=== PATIENT | male | born 1930 | race Caucasian/White ===

== ENCOUNTER 2017-10-15 08:46 | Outpatient (CLI) | payer MEDICARE ==
[~2017-10-15] VITALS: Ht 177.8 cm; Wt 72.6 kg
[~2017-10-15 08:46] MED LIST: ASPI81TA52 PO; ATOR10TA PO; BETA1TAB19 PO; CHOL400T32 PO; CLOP75TA15 PO; GINK120C PO; MAGN400C PO; MULT-1085 PO; OMEP20CA10 PO; VITA-67 PO; XAL0.005OS OP; ZINC30TA2 PO
[2017-10-15 09:16] LABS: TOTAL HEMOGLOBIN 15.8 G/dl (14.0-18.0)
[2017-10-15] MEDS ORDERED: albuterol 2.5 MG/3 ML nebule NEB PRN (09:45)
== END 2017-10-15 23:59 | disposition home or self-care (01) ==
LOC: RT 08:46
PROVIDERS: ATTEND Internal Medicine Pulmonary Disease
DX: J84.112 Idiopathic pulmonary fibrosis (principal); J98.4 Other disorders of lung
CPT/HCPCS: 85018; 94060; 94640; 94727; 94729; 94760

== ENCOUNTER 2018-09-23 15:12 | Inpatient (IN) | payer MEDICARE, OTHER ==
[~2018-09-23] VITALS: Ht 177.8 cm; Wt 68.9 kg
[~2018-09-23 15:12] MED LIST changes: +ALBU8.5H8 INH; +ASCO500C15 PO; -BETA1TAB19 PO; +BUDE10.22 INH; +CINN500C15; +COL100C PO; +LACT1CAP26 PO; +LEVO750T46 PO; -OMEP20CA10 PO; +VITA-332; -XAL0.005OS OP; -ZINC30TA2 PO
[2018-09-23] MEDS ORDERED: methylPREDNISolone sod succ 125mg/2ml vial IV ONE (15:25)
[2018-09-23] MEDS ORDERED: albuterol 2.5 MG/3 ML nebule CONTNEB PRN (15:25)
[2018-09-23] MEDS ORDERED: furosemide 10 MG/1 ML 10ml inj IV ONE (15:55)
[2018-09-23 16:00] LABS: ABG BASE EXCESS -0.8 mmol/L (-2.0-3.0); ABG HCO3 22.6 mmol/L (22.0-26.0); ABG OXYGEN SATURATION 88.5 % (95-98); ABG PCO2 (T) 33.7 mmHg (35.0-48.0); ABG PH (T) 7.444 (7.350-7.450); ABG PO2 (T) 56.5 mmHg (83-108); FLOW 3 L/min; FMetHb 0.2 % (0.3-1.12); FO2Hb 87.4 % (94-100); TOTAL HEMOGLOBIN 13.5 G/dl (14.0-18.0)
--- NOTE | 2018-09-23 16:01 | NUR ---
pt is receiving breathing treatment
--- NOTE | 2018-09-23 16:11 | NUR ---
PT IS RESTING QUIETLY ON GURNEY, NO RESP DISTRESS, SPEAKING 5-6 WORD SENTENCES, FAMILY AT BEDSIDE, SKIN P/W/D
[2018-09-23 16:17] LABS: BASOPHILS # (AUTO) 0.1 X10'3 (0-0.2); BASOPHILS % (AUTO) 1.2 % (0-1); EOSINOPHILS # (AUTO) 0.2 X10'3 (0-0.9); EOSINOPHILS % (AUTO) 2.7 % (0-6); HEMATOCRIT 38.3 % (42.0-52.0); HEMOGLOBIN 12.7 g/dl (14.0-17.9); LYMPHOCYTES # (AUTO) 1.5 X10'3 (1.1-4.8); LYMPHOCYTES % (AUTO) 20.1 % (21-51); MEAN CORPUSCULAR HEMOGLOBIN 29.2 PG (27.0-31.0); MEAN CORPUSCULAR HGB CONC 33.1 g/dL (33.0-36.5); MEAN CORPUSCULAR VOLUME 88.2 FL (78-98); MEAN PLATELET VOLUME 7.5 FL (7.4-10.4); MONOCYTES # (AUTO) 0.9 X10'3 (0-0.9); MONOCYTES % (AUTO) 12.1 % (2-12); NEUTROPHILS # (AUTO) 4.8 X10'3 (1.8-7.7); NEUTROPHILS % (AUTO) 63.9 % (42-75); PLATELET COUNT 296 X10'3 (140-440); RED BLOOD COUNT 4.34 X10'6 (4.70-6.10); RED CELL DISTRIBUTION WIDTH 15.8 % (11.5-14.5); WHITE BLOOD COUNT 7.5 X10'3 (4.5-11.0)
--- NOTE | 2018-09-23 16:25 | NUR ---
PT UP TO AT BEDSIDE WITHOUT ASSIST TO USE URINAL, SOB INCREASED WITH ACTIVITY, SPEAKING 3-4 WORD SENTENCES, PULSE OX 85% WHILE ON BREATHING TREATMENT BUT INCREASED TO 96% AFTER 5 MINUTES AND SOB IS RESOLVING
[2018-09-23 16:45] LABS: INR 1.1 INR
[2018-09-23 16:55] LABS: ALANINE AMINOTRANSFERASE 19 U/L (12-78); ALBUMIN 3.2 G/DL (3.4-5.0); ALBUMIN/GLOBULIN RATIO 1.1 (1.1-1.5); ALKALINE PHOSPHATASE 79 IU/L (46-116); ANION GAP 16 (8-16); ASPARTATE AMINO TRANSFERASE 25 U/L (10-37); BILIRUBIN,TOTAL 0.4 MG/DL (0.1-1.0); BLOOD UREA NITROGEN 25 MG/DL (7-18); BUN/CREATININE RATIO 24.8 (5.4-32.0); CALCIUM 8.8 MG/DL (8.5-10.1); CHLORIDE 107 MMOL/L (99-107); CREATININE 1.01 MG/DL (0.60-1.10); GLUCOSE 89 MG/DL (70-104); POTASSIUM 4.3 MMOL/L (3.5-5.1); SODIUM 143 MMOL/L (135-145); TOTAL CARBON DIOXIDE 20.1 MMOL/L (24-32); TOTAL PROTEIN 6.2 G/DL (6.4-8.2); eGFR 70 ML/MIN
[2018-09-23] MEDS ORDERED: PRED10TA23 PO (16:59)
--- NOTE | 2018-09-23 17:16 | NUR ---
PT AMB WITH STEADY GAIT ON 3LITERS NASAL CANNULA, PULSE OX 80%WITH AMBULATION, Geneva PAGAN AWARE
--- NOTE | 2018-09-23 17:32 | NUR ---
Geneva PAGAN at bedside to evaluate pt, pt continues to rest quietly sitting on edge of bed, 94% on 3liters nasal cannula
--- NOTE | 2018-09-23 18:10 | NUR ---
PT IS WAITING TO BE EVALUATED BY HOSPITALIST
--- NOTE | 2018-09-23 18:17 | NUR ---
Dr Yang at bedside
--- NOTE | 2018-09-23 18:22 | NUR ---
dr. mendenhall at bedside for admission now.
[2018-09-23] MEDS ORDERED: magnesium 2GM in 50ml NS 50 ML IV PRN (18:25)
[2018-09-23] MEDS ORDERED: potassium Cl 40MEQ/NS 500ml 500 ML IV PRN ×2 (18:25)
[2018-09-23] MEDS ORDERED: magnesium hydroxide 30ml (MOM) UD suspension PO PRN (18:25)
[2018-09-23] MEDS ORDERED: potassium Cl 20 mEq SR tablet PO PRN ×2 (18:25)
[2018-09-23] MEDS ORDERED: magnesium Cl slow-release 64mg tablet PO PRN (18:25)
[2018-09-23] MEDS ORDERED: magnesium 4gm in 100ml NS 100 ML IV PRN (18:25)
[2018-09-23] MEDS ORDERED: mag hydrox/Alum hydrox/simeth 30ml oral suspension PO PRN (18:25)
[2018-09-23] MEDS ORDERED: ondansetron/PF 4mg/2ml inj IV PRN (18:25)
[2018-09-23] MEDS ORDERED: acetaminophen 325mg tablet PO PRN ×2 (18:25)
[2018-09-23] MEDS ORDERED: CLOP75TA15 PO (18:31)
[2018-09-23] MEDS ORDERED: clopidogrel 75mg tablet PO SCH (18:35)
[2018-09-23] MEDS ORDERED: ipratropium/albuterol 3ml nebule NEB PRN (18:35)
--- NOTE | 2018-09-23 19:00 | NUR ---
PHARMACIST ASKING PT WHY HE TAKES PLAVIX ONLY EVERY OTHER DAY AND PT REPORTS THAT DR. PHILIP HAS TOLD HIM TO CHANGE IT TO EVERY OTHER DAY ABOUT 2 WEEKS AGO. PT REPORTS THAT THE DOCTOR TOLD HIM HE DOES NOT "REALLY NEED IT ANY MORE"
[2018-09-23] MEDS: furosemide 20 MG/2 ML vial IV SCH (19:58)
[2018-09-23] MEDS: methylPREDNISolone sod succ 125mg/2ml vial IV SCH (20:21)
--- NOTE | 2018-09-23 20:21 | NUR ---
pt given sandwich and milk. awaiting ipa. vss. awaiting svn treatment from RT. (ordered q4hr scheduled)
[2018-09-23] MEDS: ipratropium/albuterol 3ml nebule NEB SCH (20:50)
[2018-09-23] MEDS ORDERED: temazepam 15mg capsule PO PRN (21:00)
--- NOTE | 2018-09-23 21:50 | NUR ---
, Neeraj, calling for update. contact [phone].
--- NOTE | 2018-09-23 22:20 | NUR ---
relieving RN for lunch, pt is now on hospital bed, no beds available upstairs
[2018-09-24] MEDS: ipratropium/albuterol 3ml nebule NEB SCH ×6 (00:35→19:49)
[2018-09-24] MEDS: methylPREDNISolone sod succ 125mg/2ml vial IV SCH ×4 (02:14→20:09)
[2018-09-24 04:15] LABS: HEMATOCRIT 39.3 % (42.0-52.0); HEMOGLOBIN 12.8 g/dl (14.0-17.9); MEAN CORPUSCULAR HEMOGLOBIN 28.5 PG (27.0-31.0); MEAN CORPUSCULAR HGB CONC 32.6 g/dL (33.0-36.5); MEAN CORPUSCULAR VOLUME 87.4 FL (78-98); MEAN PLATELET VOLUME 7.4 FL (7.4-10.4); PLATELET COUNT 343 X10'3 (140-440); RED CELL DISTRIBUTION WIDTH 16.1 % (11.5-14.5); WHITE BLOOD COUNT 4.8 X10'3 (4.5-11.0)
[2018-09-24 04:32] LABS: ALBUMIN 3.2 G/DL (3.4-5.0); ANION GAP 8 (8-16); BLOOD UREA NITROGEN 28 MG/DL (7-18); BUN/CREATININE RATIO 26.4 (5.4-32.0); CALCIUM 8.9 MG/DL (8.5-10.1); CHLORIDE 106 MMOL/L (99-107); CREATININE 1.06 MG/DL (0.60-1.10); GLUCOSE 141 MG/DL (70-104); POTASSIUM 4.1 MMOL/L (3.5-5.1); SODIUM 143 MMOL/L (135-145); TOTAL CARBON DIOXIDE 28.9 MMOL/L (24-32); eGFR 66 ML/MIN
[2018-09-24 04:37] LABS: MAGNESIUM 1.9 MG/DL (1.5-2.4)
--- NOTE | 2018-09-24 07:29 | NUR ---
Patient in room ED 9. I have received report from Deb MARTIN and had the opportunity to ask questions and assume patient care.
[2018-09-24] MEDS: pantoprazole 40mg Tablet.DR PO SCH (07:41)
[2018-09-24] MEDS: furosemide 20 MG/2 ML vial IV SCH ×2 (07:41→20:09)
[2018-09-24] MEDS: aspirin 81mg tablet.DR PO SCH (07:41)
[2018-09-24] MEDS: atorvastatin 10mg tablet PO SCH (07:41)
[2018-09-24] MEDS: enoxaparin 40mg/0.4ml syringe SQ SCH (07:42)
[2018-09-24] MEDS: K and/or MAG REPLACEMENT MC SCH (09:45)
[2018-09-24 11:00] VITALS: BP 110/51
[2018-09-24 15:00] VITALS: BP 137/76
--- NOTE | 2018-09-24 18:15 | NUR ---
Patient in room PCU 3025. I have received report from Byron MARTIN and had the opportunity to ask questions and assume patient care. Pt laying in bed. Skin check performed at this time. Pleasant demeanor. Compliant with fluid restriction. On supplemental O2. 20G in R. FA SL
[2018-09-24 19:00] VITALS: BP 109/69
[2018-09-24 23:00] VITALS: BP 98/58
[2018-09-25] MEDS: ipratropium/albuterol 3ml nebule NEB SCH ×4 (00:04→11:00)
[2018-09-25 03:00] VITALS: BP 92/52
[2018-09-25] MEDS: methylPREDNISolone sod succ 125mg/2ml vial IV SCH ×2 (03:02→08:24)
[2018-09-25 05:42] LABS: HEMOGLOBIN 12.4 g/dl (14.0-17.9); MEAN CORPUSCULAR HEMOGLOBIN 28.9 PG (27.0-31.0); MEAN CORPUSCULAR HGB CONC 32.7 g/dL (33.0-36.5); MEAN CORPUSCULAR VOLUME 88.4 FL (78-98); MEAN PLATELET VOLUME 7.9 FL (7.4-10.4); PLATELET COUNT 340 X10'3 (140-440); RED CELL DISTRIBUTION WIDTH 15.5 % (11.5-14.5)
[2018-09-25 06:00] VITALS: BP 103/49
[2018-09-25 06:07] LABS: ALBUMIN 3.2 G/DL (3.4-5.0); ANION GAP 10 (8-16); BLOOD UREA NITROGEN 37 MG/DL (7-18); BUN/CREATININE RATIO 34.6 (5.4-32.0); CALCIUM 8.9 MG/DL (8.5-10.1); CHLORIDE 102 MMOL/L (99-107); CREATININE 1.07 MG/DL (0.60-1.10); GLUCOSE 130 MG/DL (70-104); POTASSIUM 4.2 MMOL/L (3.5-5.1); SODIUM 142 MMOL/L (135-145); TOTAL CARBON DIOXIDE 30.2 MMOL/L (24-32); eGFR 65 ML/MIN
--- NOTE | 2018-09-25 06:44 | NUR ---
Problems reprioritized. Patient report given, questions answered & plan of care reviewed with Jory MARTIN.
[2018-09-25] MEDS: K and/or MAG REPLACEMENT MC SCH (08:00)
[2018-09-25] MEDS: aspirin 81mg tablet.DR PO SCH (08:22)
[2018-09-25] MEDS: pantoprazole 40mg Tablet.DR PO SCH (08:22)
[2018-09-25] MEDS: atorvastatin 10mg tablet PO SCH (08:22)
[2018-09-25] MEDS: furosemide 20 MG/2 ML vial IV SCH (08:25)
[2018-09-25] MEDS: enoxaparin 40mg/0.4ml syringe SQ SCH (08:27)
[2018-09-25 11:00] VITALS: BP 136/57
[2018-09-25] MEDS ORDERED: PRED10TA23 PO (11:24)
[2018-09-25] MEDS ORDERED: FURO-150 PO (11:24)
--- NOTE | 2018-09-25 12:06 | NUR ---
PAGER ID: [phone] MESSAGE: Jory MARTIN [phone] Pt. walked 150ft on 3L and O2 sats stayed in the low 80s. Pt. was also SOB throughout the walk. O2 sats at rest were mid 90s. Thank you
--- NOTE | 2018-09-25 12:35 | NUR ---
PAGER ID: [phone] MESSAGE: Jory MARTIN [phone] Jareth. Took pt. between 4 and 4.5L to stay in the 90s. Pt. walked 300ft.
--- NOTE | 2018-09-25 15:20 | NUR ---
Removed pt.s monitor and IV, IV tip intact. Pt. accompanied by and wheeled down to private vehicle in stable condition. Pt. given discharge packet and new medication list [facility], who confirmed she received the fax. Pt took with him 2 bags of belongings which included cell phone. Pt no longer on the floor.
== END 2018-09-25 15:10 | disposition home or self-care (01) | DRG 280 ==
LOC: ER 15:13 → ED HOLD 18:24 → PCU 3S 09-24 08:22
PROVIDERS: ADMIT Family Medicine; ATTEND Internal Medicine
DX: I11.0 Hypertensive heart disease with heart failure (principal); I21.A1 Myocardial infarction type 2; J96.21 Acute and chronic respiratory failure with hypoxia; J44.1 Chronic obstructive pulmonary disease with (acute) exacerbation; E78.5 Hyperlipidemia, unspecified; I50.9 Heart failure, unspecified; J84.10 Pulmonary fibrosis, unspecified; I25.10 Atherosclerotic heart disease of native coronary artery without angina pectoris; N40.0 Benign prostatic hyperplasia without lower urinary tract symptoms; I25.2 Old myocardial infarction; Z95.5 Presence of coronary angioplasty implant and graft; Z79.899 Other long term (current) drug therapy; Z79.82 Long term (current) use of aspirin
CPT/HCPCS: 36415; 36600; 71045; 80048; 80053; 82803; 83735; 83880; 84484; 85018; 85025; 85027; 85610; 87070; 93005; 94640; 94644; 94760; 96374; 96375; 99285; G0378; J1650; J1940; J2930

== ENCOUNTER 2018-12-30 12:14 | Emergency (ER) | payer MEDICARE, OTHER ==
[~2018-12-30] VITALS: Ht 177.8 cm; Wt 63.5 kg
[~2018-12-30 12:14] MED LIST changes: -CHOL400T32 PO; -CINN500C15; -COL100C PO; +FURO-150 PO; -GINK120C PO; -LACT1CAP26 PO; -LEVO750T46 PO; -MAGN400C PO; -VITA-332; -VITA-67 PO
[2018-12-30] MEDS ORDERED: ipratropium 0.5 MG/2.5ML nebule IH ONE (12:40)
[2018-12-30] MEDS ORDERED: magnesium 2GM in 50ml NS 50 ML IV ONE (12:40)
[2018-12-30] MEDS ORDERED: albuterol 2.5 MG/3 ML nebule CONTNEB PRN (12:40)
[2018-12-30] MEDS ORDERED: methylPREDNISolone sod succ 125mg/2ml vial IV ONE (12:40)
[2018-12-30] MEDS ORDERED: ipratropium 0.5 MG/2.5ML nebule ONE (13:18)
[2018-12-30 13:23] LABS: BASOPHILS # (AUTO) 0.1 X10'3 (0-0.2); BASOPHILS % (AUTO) 0.9 % (0-1); EOSINOPHILS # (AUTO) 0.4 X10'3 (0-0.9); EOSINOPHILS % (AUTO) 5.5 % (0-6); HEMATOCRIT 43.1 % (42.0-52.0); LYMPHOCYTES # (AUTO) 1.7 X10'3 (1.1-4.8); LYMPHOCYTES % (AUTO) 21.5 % (21-51); MEAN CORPUSCULAR HEMOGLOBIN 26.8 PG (27.0-31.0); MEAN CORPUSCULAR HGB CONC 32.4 g/dL (33.0-36.5); MEAN CORPUSCULAR VOLUME 82.6 FL (78-98); MEAN PLATELET VOLUME 7.8 FL (7.4-10.4); MONOCYTES # (AUTO) 1.3 X10'3 (0-0.9); MONOCYTES % (AUTO) 16.9 % (2-12); NEUTROPHILS # (AUTO) 4.3 X10'3 (1.8-7.7); NEUTROPHILS % (AUTO) 55.2 % (42-75); PLATELET COUNT 264 X10'3 (140-440); RED BLOOD COUNT 5.22 X10'6 (4.70-6.10); RED CELL DISTRIBUTION WIDTH 17.5 % (11.5-14.5); WHITE BLOOD COUNT 7.8 X10'3 (4.5-11.0)
[2018-12-30 13:30] VITALS: BP 93/54
[2018-12-30 13:43] LABS: ALANINE AMINOTRANSFERASE 23 U/L (12-78); ALBUMIN 3.3 G/DL (3.4-5.0); ALBUMIN/GLOBULIN RATIO 1.1 (1.1-1.5); ALKALINE PHOSPHATASE 83 IU/L (46-116); ANION GAP 5 (8-16); ASPARTATE AMINO TRANSFERASE 27 U/L (10-37); BILIRUBIN,TOTAL 0.5 MG/DL (0.1-1.0); BLOOD UREA NITROGEN 24 MG/DL (7-18); CALCIUM 9.9 MG/DL (8.5-10.1); CHLORIDE 107 MMOL/L (99-107); GLUCOSE 77 MG/DL (70-104); POTASSIUM 4.4 MMOL/L (3.5-5.1); SODIUM 141 MMOL/L (135-145); TOTAL CARBON DIOXIDE 28.9 MMOL/L (24-32); TOTAL PROTEIN 6.3 G/DL (6.4-8.2); eGFR 71 ML/MIN
[2018-12-30] MEDS ORDERED: PRED20TA PO (13:59)
[2018-12-30] MEDS ORDERED: ALBU8.5H8 IH (14:26)
--- NOTE | 2018-12-30 14:49 | NUR ---
Carmina with MD regarding pt labs. Trop .15. stated will speak to pt and .
--- NOTE | 2018-12-30 14:59 | NUR ---
Dr. Cuello spoke with pt and . ok to D/C pt. Pt will f/u as directed. no pain, no distress noted. on home o2
== END 2018-12-30 15:03 | disposition home or self-care (01) ==
LOC: ER 12:15
DX: J44.1 Chronic obstructive pulmonary disease with (acute) exacerbation (principal); I25.10 Atherosclerotic heart disease of native coronary artery without angina pectoris; I25.2 Old myocardial infarction; Z95.5 Presence of coronary angioplasty implant and graft; Z98.890 Other specified postprocedural states; Z79.82 Long term (current) use of aspirin; Z79.899 Other long term (current) drug therapy; Z99.81 Dependence on supplemental oxygen
CPT/HCPCS: 36415; 71045; 80053; 83880; 84145; 84484; 85025; 93005; 94644; 94760; 96365; 96366; 96375; 99285; J2930; J3475

== ENCOUNTER 2019-01-07 10:25 | Inpatient (IN) | payer MEDICARE, OTHER | END 2019-01-09 14:35 | disposition home or self-care (01) | LOC: ER 10:25 → PCU 3S 14:38 | DX: A41.9 Sepsis, unspecified organism (principal); I21.4 Non-ST elevation (NSTEMI) myocardial infarction; J96.20 Acute and chronic respiratory failure, unspecified whether with hypoxia or hypercapnia; J44.9 Chronic obstructive pulmonary disease, unspecified ==

== ENCOUNTER 2019-01-14 12:13 | Emergency (ER) | payer MEDICARE, OTHER ==
[~2019-01-14] VITALS: Ht 177.8 cm; Wt 61.4 kg
[~2019-01-14 12:13] MED LIST changes: +ALBU18HF2 IH; -ALBU8.5H8 INH; -ASCO500C15 PO; +ASPI-1265 PO; -ASPI81TA52 PO; -ATOR10TA PO; +ATOR10TA70 PO; -CLOP75TA15 PO; +CLOP75TA35 PO; -FURO-150 PO; +LEVO500T2 PO; -MULT-1085 PO; +PRED20TA PO
[2019-01-14 13:32] LABS: BASOPHILS % (AUTO) 0.3 % (0-1); EOSINOPHILS # (AUTO) 0.1 X10'3 (0-0.9); HEMATOCRIT 39.8 % (42.0-52.0); HEMOGLOBIN 12.8 g/dl (14.0-17.9); LYMPHOCYTES # (AUTO) 0.8 X10'3 (1.1-4.8); LYMPHOCYTES % (AUTO) 6.1 % (21-51); MEAN CORPUSCULAR HEMOGLOBIN 26.4 PG (27.0-31.0); MEAN CORPUSCULAR VOLUME 82.4 FL (78-98); MEAN PLATELET VOLUME 7.3 FL (7.4-10.4); MONOCYTES # (AUTO) 0.7 X10'3 (0-0.9); MONOCYTES % (AUTO) 5.3 % (2-12); NEUTROPHILS # (AUTO) 11.3 X10'3 (1.8-7.7); NEUTROPHILS % (AUTO) 87.3 % (42-75); PLATELET COUNT 316 X10'3 (140-440); RED BLOOD COUNT 4.83 X10'6 (4.70-6.10); RED CELL DISTRIBUTION WIDTH 18.5 % (11.5-14.5)
[2019-01-14 13:47] LABS: ALANINE AMINOTRANSFERASE 94 U/L (12-78); ALBUMIN 2.8 G/DL (3.4-5.0); ALKALINE PHOSPHATASE 79 IU/L (46-116); ANION GAP 2 (8-16); ASPARTATE AMINO TRANSFERASE 75 U/L (10-37); BILIRUBIN,TOTAL 0.3 MG/DL (0.1-1.0); BLOOD UREA NITROGEN 25 MG/DL (7-18); BUN/CREATININE RATIO 27.5 (5.4-32.0); CALCIUM 8.8 MG/DL (8.5-10.1); CHLORIDE 102 MMOL/L (99-107); CREATININE 0.91 MG/DL (0.60-1.10); GLUCOSE 91 MG/DL (70-104); POTASSIUM 4.7 MMOL/L (3.5-5.1); SODIUM 135 MMOL/L (135-145); TOTAL CARBON DIOXIDE 30.7 MMOL/L (24-32); TOTAL PROTEIN 5.6 G/DL (6.4-8.2); eGFR 79 ML/MIN
[2019-01-14 13:49] LABS: PARTIAL THROMBOPLASTIN TIME 25 SECONDS (22-32)
[2019-01-14] MEDS: normal saline 1000ML IV soln IV ONE (13:49)
[2019-01-14 14:26] LABS: CLARITY,URINE CLEAR (Clear); COLOR,URINE YELLOW (Yellow); GLUCOSE, URINE NEGATIVE (Neg); KETONES,URINE NEGATIVE (Neg); LEUKOCYTE ESTERASE ,URINE NEGATIVE (Neg); NITRITES, URINE NEGATIVE (Neg); OCCULT BLOOD,URINE NEGATIVE (Neg); PH,URINE 6.5 (4.8-8.0); PROTEIN,URINE NEGATIVE (Neg); UROBILINOGEN,URINE 0.2 E.U/dL (0.2-1.0)
[2019-01-14 14:27] LABS: UA COLLECTION TYPE VOIDED
[2019-01-14 15:06] VITALS: BP 117/67
== END 2019-01-14 14:48 | disposition home or self-care (01) ==
LOC: ER 12:13
DX: I95.9 Hypotension, unspecified (principal); I25.10 Atherosclerotic heart disease of native coronary artery without angina pectoris; I25.2 Old myocardial infarction; J44.9 Chronic obstructive pulmonary disease, unspecified; Z98.890 Other specified postprocedural states; Z79.82 Long term (current) use of aspirin; Z79.2 Long term (current) use of antibiotics; Z79.899 Other long term (current) drug therapy
CPT/HCPCS: 36415; 71045; 80053; 81003; 83605; 84145; 85025; 85610; 85730; 87040; 93005; 99284; J7030

== ENCOUNTER 2019-03-18 10:26 | Inpatient (IN) | payer MEDICARE ==
[~2019-03-18] VITALS: Ht 177.8 cm; Wt 59.1 kg
[~2019-03-18 10:26] MED LIST changes: -LEVO500T2 PO; +MULT-1074 PO; -PRED20TA PO
[2019-03-18 10:53] LABS: BASOPHILS # (AUTO) 0.1 X10'3 (0-0.2); BASOPHILS % (AUTO) 1.2 % (0-1); EOSINOPHILS # (AUTO) 0.3 X10'3 (0-0.9); EOSINOPHILS % (AUTO) 2.7 % (0-6); HEMATOCRIT 47.6 % (42.0-52.0); HEMOGLOBIN 15.2 g/dl (14.0-17.9); LYMPHOCYTES # (AUTO) 1.7 X10'3 (1.1-4.8); LYMPHOCYTES % (AUTO) 13.9 % (21-51); MEAN CORPUSCULAR HEMOGLOBIN 26.8 PG (27.0-31.0); MEAN CORPUSCULAR VOLUME 83.7 FL (78-98); MEAN PLATELET VOLUME 7.7 FL (7.4-10.4); MONOCYTES # (AUTO) 1.2 X10'3 (0-0.9); MONOCYTES % (AUTO) 9.8 % (2-12); NEUTROPHILS # (AUTO) 8.8 X10'3 (1.8-7.7); NEUTROPHILS % (AUTO) 72.4 % (42-75); PLATELET COUNT 329 X10'3 (140-440); RED BLOOD COUNT 5.69 X10'6 (4.70-6.10); RED CELL DISTRIBUTION WIDTH 18.2 % (11.5-14.5); WHITE BLOOD COUNT 12.1 X10'3 (4.5-11.0)
[2019-03-18 11:05] LABS: PARTIAL THROMBOPLASTIN TIME 28 SECONDS (22-32)
[2019-03-18 11:06] LABS: ALANINE AMINOTRANSFERASE 42 U/L (12-78); ALBUMIN 3.8 G/DL (3.4-5.0); ALKALINE PHOSPHATASE 103 IU/L (46-116); ANION GAP 9 (8-16); ASPARTATE AMINO TRANSFERASE 38 U/L (10-37); BILIRUBIN,TOTAL 0.6 MG/DL (0.1-1.0); BLOOD UREA NITROGEN 27 MG/DL (7-18); BUN/CREATININE RATIO 23.9 (5.4-32.0); CHLORIDE 106 MMOL/L (99-107); CREATININE 1.13 MG/DL (0.60-1.10); GLUCOSE 76 MG/DL (70-104); POTASSIUM 4.2 MMOL/L (3.5-5.1); SODIUM 143 MMOL/L (135-145); TOTAL CARBON DIOXIDE 28.2 MMOL/L (24-32); TOTAL PROTEIN 7.5 G/DL (6.4-8.2); eGFR 61 ML/MIN
[2019-03-18] MEDS ORDERED: methylPREDNISolone sod succ 125mg/2ml vial IV ONE (11:15)
[2019-03-18] MEDS ORDERED: ipratropium/albuterol 3ml nebule NEB ONE (11:15)
[2019-03-18] MEDS ORDERED: azithromycin/NS 500mg/250ml 250 ML IV ONE (12:30)
[2019-03-18] MEDS ORDERED: CefTRIAXone 2gm/D5W 50ml 50 ML IV ONE (12:30)
[2019-03-18] MEDS ORDERED: HYDROcodone/acetaminophen 5mg/325mg tablet PO PRN (12:40)
[2019-03-18] MEDS ORDERED: acetaminophen 325mg tablet PO PRN ×2 (12:40)
[2019-03-18] MEDS ORDERED: mag hydrox/Alum hydrox/simeth 30ml oral suspension PO PRN (12:40)
[2019-03-18] MEDS ORDERED: morphine 2 MG/ML inj. syringe IV PRN ×2 (12:40)
[2019-03-18] MEDS ORDERED: ondansetron/PF 4mg/2ml inj IV PRN (12:40)
[2019-03-18] MEDS ORDERED: magnesium hydroxide 30ml (MOM) UD suspension PO PRN (12:40)
[2019-03-18] MEDS ORDERED: CLOP75TA33 PO (12:47)
[2019-03-18] MEDS ORDERED: MULT-933 PO (12:48)
--- NOTE | 2019-03-18 14:00 | NUR ---
Patient in room PCU 3025. I have received report from PRISCILLA Moore RN and had the opportunity to ask questions and assume patient care.
[2019-03-18] MEDS: albuterol 2.5 MG/3 ML nebule NEB SCH ×2 (14:11→21:00)
[2019-03-18 15:00] VITALS: BP_SYST 103; BP_SYST 97; BP_DIAS 65; BP_DIAS 69
[2019-03-18] MEDS: furosemide 20 MG/2 ML vial IV SCH (16:00)
[2019-03-18 18:00] VITALS: BP 102/60
--- NOTE | 2019-03-18 18:20 | NUR ---
Problems reprioritized. Patient report given, questions answered & plan of care reviewed with Mina MARTIN.
--- NOTE | 2019-03-18 18:21 | NUR ---
Patient in room PCU 3025. I have received report from Niraj MARTIN and had the opportunity to ask questions and assume patient care.
[2019-03-18] MEDS ORDERED: proCHLORperazine 10 MG/2 ml inj IV PRN (19:25)
--- NOTE | 2019-03-18 19:32 | NUR ---
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 undone as pt was unable to keep med down without vomiting it up
[2019-03-18 20:10] VITALS: BP 140/93
[2019-03-18 22:00] VITALS: BP 110/91
--- NOTE | 2019-03-18 22:43 | NUR ---
Layne GREGORY made aware of patient decreased BP on standing. No new orders.
[2019-03-18 22:44] VITALS: BP_SYST 110; BP_SYST 87; BP_SYST 97; BP_DIAS 60; BP_DIAS 71
[2019-03-19 02:00] VITALS: BP 117/92
[2019-03-19 06:00] VITALS: BP 121/75
--- NOTE | 2019-03-19 06:10 | NUR ---
Patient in room PCU 3025. I have received report from Mina MARTIN and had the opportunity to ask questions and assume patient care.
--- NOTE | 2019-03-19 06:19 | NUR ---
Problems reprioritized. Patient report given, questions answered & plan of care reviewed with Niraj MARTIN.
[2019-03-19 06:27] LABS: BASOPHILS % (AUTO) 0.1 % (0-1); EOSINOPHILS % (AUTO) 0.1 % (0-6); HEMATOCRIT 43.3 % (42.0-52.0); HEMOGLOBIN 13.8 g/dl (14.0-17.9); LYMPHOCYTES # (AUTO) 1.2 X10'3 (1.1-4.8); LYMPHOCYTES % (AUTO) 10.8 % (21-51); MEAN CORPUSCULAR HEMOGLOBIN 26.8 PG (27.0-31.0); MEAN CORPUSCULAR HGB CONC 31.9 g/dL (33.0-36.5); MEAN PLATELET VOLUME 8.1 FL (7.4-10.4); MONOCYTES # (AUTO) 1.1 X10'3 (0-0.9); MONOCYTES % (AUTO) 9.4 % (2-12); NEUTROPHILS # (AUTO) 9.1 X10'3 (1.8-7.7); NEUTROPHILS % (AUTO) 79.6 % (42-75); PLATELET COUNT 328 X10'3 (140-440); RED BLOOD COUNT 5.16 X10'6 (4.70-6.10); RED CELL DISTRIBUTION WIDTH 17.8 % (11.5-14.5); WHITE BLOOD COUNT 11.5 X10'3 (4.5-11.0)
[2019-03-19 06:51] LABS: ALBUMIN 3.5 G/DL (3.4-5.0); ANION GAP 11 (8-16); BLOOD UREA NITROGEN 32 MG/DL (7-18); BUN/CREATININE RATIO 24.8 (5.4-32.0); CALCIUM 9.5 MG/DL (8.5-10.1); CHLORIDE 105 MMOL/L (99-107); CHOLESTEROL 145 MG/DL (0-200); CREATININE 1.29 MG/DL (0.60-1.10); GLUCOSE 101 MG/DL (70-104); HDL CHOLESTEROL 56 MG/DL (35-60); POTASSIUM 4.6 MMOL/L (3.5-5.1); SODIUM 142 MMOL/L (135-145); TOTAL CARBON DIOXIDE 25.9 MMOL/L (24-32); eGFR 53 ML/MIN
[2019-03-19 06:52] LABS: CHOL/HDL RATIO 2.6 (0.00-4.99); LDL CHOLESTEROL 84 MG/DL (50-100); TRIGLYCERIDES 41 MG/DL (20-135)
[2019-03-19] MEDS: furosemide 20 MG/2 ML vial IV SCH (07:59)
[2019-03-19 08:00] VITALS: BP_SYST 108; BP_SYST 90; BP_SYST 97; BP_DIAS 54; BP_DIAS 59; BP_DIAS 65
[2019-03-19] MEDS ORDERED: atorvastatin 10mg tablet PO SCH (08:00)
[2019-03-19] MEDS ORDERED: multivitamins, therapeutics tablet PO SCH (08:00)
[2019-03-19] MEDS ORDERED: enoxaparin 40mg/0.4ml syringe SUBCUT SCH (08:00)
[2019-03-19] MEDS ORDERED: clopidogrel 75mg tablet PO SCH (08:00)
[2019-03-19] MEDS ORDERED: aspirin 81mg tab.chew PO SCH (08:00)
[2019-03-19] MEDS: albuterol 2.5 MG/3 ML nebule NEB SCH (08:09)
[2019-03-19] MEDS ORDERED: FURO-150 PO (10:46)
[2019-03-19] MEDS ORDERED: PRED10TA23 PO (10:46)
[2019-03-19] MEDS ORDERED: FLUD0.1T PO (10:46)
[2019-03-19 11:00] VITALS: BP 111/68
--- NOTE | 2019-03-19 15:15 | NUR ---
Pt DC'd home with . IV removed, canula intact. Tele-box removed and returned to tele-tech. DC paperwork and instructions gone over with Pt and . Allowed both Pt and to ask questions concerning DC and answered them. Went over new meds and when to take them. Follow up appt will be made by Pt and with PCP. New meds called into [facility] in [place]. Pt's belongings gathered and sent with Pt. Pt wheeled down to lobby in wheelchair via auxillary personal and left with in private vehicle
== END 2019-03-19 15:15 | disposition home health service (06) | DRG 314 ==
LOC: ER 10:26 → PCU 3S 14:00 → CMPBEDREQ 19:39
PROVIDERS: ADMIT Internal Medicine; ATTEND Internal Medicine
DX: I27.81 Cor pulmonale (chronic) (principal); J18.9 Pneumonia, unspecified organism; J44.0 Chronic obstructive pulmonary disease with (acute) lower respiratory infection; E27.40 Unspecified adrenocortical insufficiency; J96.11 Chronic respiratory failure with hypoxia; E78.5 Hyperlipidemia, unspecified; I25.10 Atherosclerotic heart disease of native coronary artery without angina pectoris; I27.20 Pulmonary hypertension, unspecified; I12.9 Hypertensive chronic kidney disease with stage 1 through stage 4 chronic kidney disease, or unspecified chronic kidney disease; T38.0X5A Adverse effect of glucocorticoids and synthetic analogues, initial encounter; N18.3 Chronic kidney disease, stage 3 (moderate); J84.10 Pulmonary fibrosis, unspecified; I95.89 Other hypotension; Z79.82 Long term (current) use of aspirin; Z79.899 Other long term (current) drug therapy; I25.2 Old myocardial infarction; Y92.89 Other specified places as the place of occurrence of the external cause
CPT/HCPCS: 36415; 71045; 80048; 80053; 80061; 83605; 83880; 84145; 84484; 85025; 85610; 85730; 87081; 93005; 94640; 94760; 96365; 96366; 96368; 99285; G0378; J0456; J0696; J0780; J1650; J1940; J2270; J2405; J2930